=== PATIENT | female | born 1965 | race Two or more races ===

== ENCOUNTER 2025-09-10 10:50 | Outpatient (CLI) | payer OTHER | END 2025-09-10 10:54 | disposition home or self-care (01) | LOC: SONOGRAMA 10:50 | PROVIDERS: ATTEND Pathology Anatomic Pathology & Clinical Pathology | DX: D44.0 Neoplasm of uncertain behavior of thyroid gland (principal); E04.1 Nontoxic single thyroid nodule ==

== ENCOUNTER → 2025-10-07 07:12 | Outpatient (CLI) | payer OTHER | END | disposition home or self-care (01) | LOC: NUCLEAR 07:00 | DX: E21.0 Primary hyperparathyroidism (principal) ==